=== PATIENT | male | born 1990 | race Caucasian/White ===

== ENCOUNTER 2022-11-16 17:06 | Emergency (ER) | payer OTHER, SELFPAY ==
[2022-11-16 17:26] VITALS: BP 152/96; PULSE 96; RESP 16; TEMP 36.8; O2SAT 98
--- NOTE | 2022-11-16 19:09 | ED.URI ---
HPI - URI/Sore Throat General Chief Complaint: Upper Respiratory Infection Stated Complaint: Cough/Fever/Chest Congestion Time Seen by Provider: 11/16/22 19:05 Source: patient, family, RN notes reviewed and old records reviewed Mode of arrival: ambulatory Limitations: no limitations History of Present Illness HPI Narrative: 32-year-old male accompanied by presents to [facility] with complaints of 3-4 days of shortness of breath, wheezing, cough, low-grade fevers, burning in chest. Patient reports that his cough is productive of some greenish mucous, states he feels some shortness of breath with activity and he notes wheezing. Patient reports that he has taken DayQuil,NyQuil and used cough drops for his symptoms. MD elicited complaint: fever (low grade ), cough, sore throat, rhinorrhea and nasal congestion Onset (ago): day(s) (3-4) Consistency: intermittent Pain scale (0-10): 2 Description of mucous: green Able to tolerate fluids by mouth: Yes Exacerbating factors: exertion and other (cough) Treatments prior to arrival: other (DayQuil NyQuil and cough drops) Related Data Allergies Allergy/AdvReac Type Severity Reaction Status Date / Time No Known Allergies Allergy Verified 11/16/22 18:08 Review of Systems Review of Systems: CONSTITUTIONAL: reports malaise, chills, sweats, or fever. EYES: Denies visual changes, redness, or discharge. ENT: Reports rhinorrhea, congestion, sinus pain, no otalgia or sore throat. CARDIOVASCULAR: Denies chest pain, palpitations, or edema, some burning in chest RESPIRATORY: Reports cough.? Denies acute dyspnea, reports wheezing GASTROINTESTINAL: Denies abdominal pain, nausea, vomiting, diarrhea SKIN: Denies rash or itching. MUSCULOSKELETAL: Denies myalgia. NEUROLOGIC: Denies headache. All systems reviewed & are unremarkable except as noted in HPI and below PMFSH Social History Social History Smoking status: Never smoker Alcohol intake: current Alcohol use details: social Substance use type: does not use Living arrangements: with family Gender identity (if verbalized by the patient): Male Comments At time of signature, agree with nursing past medical, surgical, social and family history. There is no relevant family history pertinent to the presenting complaint Exam Narrative: GENERAL: Well-appearing, well-nourished, and in no acute distress. HEAD: Normocephalic EYES: PERRLA, conjunctivae clear ENT: Nares clear, turbinates edematous and erythematous, clear discharge. Mucous membranes moist. TM pearly gilbert with dull light reflex bilaterally; no tragal tenderness. Oropharynx erythematous without lesions. Tonsils red enlarged and without exudate, no drooling, no hoarseness, no trismus, uvula midline. NECK: Supple. No lymphadenopathy CHEST: Scattered wheezes on auscultation, breath sounds equal. positive for wheezing, rhonchi, rales, or stridor. No respiratory distress, speaks in full sentences.SAO2 98% acute cough HEART: Regular rate and rhythm. No murmur heard. SKIN: Warm, dry, no rash. NEURO: Alert and oriented x3. PSYCH: Normal mood and affect Course Course Emergency Course: Patient is aware of diagnosis, understands and agrees to treatment plan.? Anticipatory guidance given.? Patient agrees to follow-up as directed and is aware of reasons to seek care at the emergency department. Portions of this record may have been created with voice recognition software Level of Care: Express Care Visit Vital Signs Vital signs: Vital Signs Temperature 36.8 C 11/16/22 17:26 Pulse Rate 96 11/16/22 17:26 Respiratory Rate 16 11/16/22 17:26 Blood Pressure 152/96 H 11/16/22 17:26 Pulse Oximetry 98 11/16/22 17:26 Oxygen Delivery Room Air 11/16/22 17:26 Temperature 36.8 C 11/16/22 17:26 Pulse Rate 96 11/16/22 17:26 Respiratory Rate 16 11/16/22 17:26 Blood Pressure 152/96 H
== END 2022-11-16 19:20 | disposition home or self-care (01) ==
PROVIDERS: Emergency Provider Registered Nurse; PCP Family Medicine
DX: J40 Bronchitis, not specified as acute or chronic (principal)
CPT/HCPCS: 99213; G0463